=== PATIENT | male | born 1965 | race Hispanic/Latino ===

== ENCOUNTER → 2025-07-12 | Outpatient (CLI) | payer BC ==
--- NOTE | 2025-07-12 18:29 | HMCSR ---
APPROVED REPORT EXAM: Two-dimensional and M-mode echocardiogram with Doppler and color Doppler. INDICATION ICD: R60.02 2D Dimensions RVDd 3.5 cm LVEF(%) 64.4 (>50%) LVED Vol(simp.) 89.7 mL IVSd 0.7 (0.7-1.1cm) FS(%) 35 % LVES Vol(simp.) 35.6 mL LVDd 4.7 (3.8-5.6cm) LA (2D) 4.1 (1.6-4.0cm) LVEF(%, simp.) 60 % PWd 0.8 (0.7-1.1cm) Ao Root(2D) 3.1 (2.0-3.7cm) LA ESV INDEX (BP) 19.91 mL/m2 IVSs 1.1 cm LVOT diam 2.0 (1.8-2.4cm) LVDs 3.1 (2.5-4.0cm) PWs 1.2 cm M-Mode Dimensions EPSS 0.4 cm LA (MM) 4.4 (1.6-4.0cm) Ao Root(MM) 2.8 (2.0-3.7cm) Aortic Valve AoV Vmax 1.3 m/s Ao Peak GR 6.7 mmHg LVOT Vmax 1.1 m/s AoV VTI 0.2 m Ao Mean GR 3.1 mmHg LVOT VTI 0.24 m JAMIE (VMAX) 2.77 cm2 JAMIE (VTI) 3.3 cm2 Mitral Valve MV E Vmax 75.2 cm/s DECEL Time 180 ms MV A Vmax 57.0 cm/s P 1/2 T 32 ms E/A ratio 1.3 MVA (PHT) 6.8 cm2 TDI E/E' Medial 10.7 E/E' Lateral 8.2 Medial E' Peak V 7.00 cm/s Lateral E' Peak V 9.15 cm/s Pulmonary Valve PV Vmax 0.9 m/s PV VTI 0.20 m PV Mean GR 2.2 mmHg PV Peak GR 3.5 mmHg PI End Sonya. Renato 113.4 cm/s Tricuspid Valve TR Vmax 2.4 m/s RAP (EST) 3 mmHg RVSP 26.0 mmHg TR Peak GR 23.0 mmHg Left Ventricle The left ventricle is normal size. There is normal LV segmental wall motion. There is normal left ventricular wall thickness. LVEF is 60-65%. The left ventricular diastolic function is normal. Right Ventricle The right ventricle is normal size. The right ventricular systolic function is normal. Atria The left atrium size is normal. Possible PFO by color Doppler. The right atrium size is normal. Aortic Valve The aortic valve is trileaflet normal in structure. Trace of aortic regurgitation is present. There is no aortic valvular stenosis. Mitral Valve The mitral valve is normal in structure. There is trace of mitral valve regurgitation noted. There is no mitral valve stenosis. Tricuspid Valve The tricuspid valve is normal in structure. There is trace of tricuspid valve regurgitation noted. Right ventricular systolic pressure is normal. Pulmonic Valve The pulmonary valve is normal in structure. There is mild pulmonic valvular regurgitation. Great Vessels The aortic root is normal in size. The IVC is normal in size and collapses >50% with inspiration. Pericardium There is no pericardial effusion. Other Information Quality : Adequate Conclusion LVEF is 60-65%. Possible PFO by color Doppler. There is trace of mitral valve regurgitation noted. The right ventricle is normal size. The right ventricular systolic function is normal. There is trace of tricuspid valve regurgitation noted. Right ventricular systolic pressure is normal.
== END | disposition home or self-care (01) ==
LOC: RAH 12:55
PROVIDERS: ATTEND Internal Medicine
DX: I37.1 Nonrheumatic pulmonary valve insufficiency (principal); R06.02 Shortness of breath
CPT/HCPCS: 93306